=== PATIENT | male | born 1945 | race Caucasian/White ===

== ENCOUNTER 2020-08-17 08:34 | Day surgery (SDC) | payer OTHER ==
[~2020-08-17] VITALS: Ht 175.3 cm; Wt 80.8 kg
--- NOTE | 2020-08-17 08:41 | NUR ---
08/17/20 0841 Lavonne Mckenna, JHOAN CHARTING
[2020-08-17] MEDS ORDERED: BENADRYL25 MG PO (09:00)
[2020-08-17] MEDS ORDERED: MELATONIN1 M1 PO (09:01)
[2020-08-17] MEDS ORDERED: ATOR10 PO (09:02)
== END 2020-08-17 12:04 | disposition home or self-care (01) ==
LOC: ORSCSDS 08:34
PROVIDERS: Ophthalmology
PROC: 08RJ3JZ Replacement of Right Lens with Synthetic Substitute, Percutaneous Approach (ICD-10-PCS; principal; 2020-08-17 10:00)
DX: H25.11 Age-related nuclear cataract, right eye (principal); H21.81 Floppy iris syndrome; Z87.891 Personal history of nicotine dependence; Z79.899 Other long term (current) drug therapy
CPT/HCPCS: J1100; J2001; J2250; J2405; J3010; J3301; J7040; V2632